=== PATIENT | female | born 1970 | race Caucasian/White ===

== ENCOUNTER → 2017-01-28 | Outpatient (CLI) | payer OTHER ==
--- NOTE | 2017-02-01 08:46 | MM ---
Reason for exam: screening (asymptomatic). Last mammogram was performed 1 year and 1 month ago. History: Family history of breast cancer in aunt at age 58. Took hormonal contraceptives for 8 years 7 months beginning at age 18. Physical Findings: A clinical breast exam by your physician is recommended on an annual basis and results should be correlated with mammographic findings. MG Screening Mammo w CAD Bilateral CC and MLO view(s) were taken. Prior study comparison: December 30, 2015, bilateral MG screening mammo w CAD. The breast tissue is extremely dense which could obscure a lesion on mammography. There is chronic nodularity in the right breast. No significant changes when compared with prior studies. ASSESSMENT: Benign, BI-RAD 2 RECOMMENDATION: Routine screening mammogram of both breasts in 1 year.
== END | disposition home or self-care (01) ==
LOC: RADMAMWWP 08:08
PROVIDERS: ATTEND Obstetrics & Gynecology
DX: Z12.31 Encounter for screening mammogram for malignant neoplasm of breast (principal)

== ENCOUNTER → 2018-04-21 | Outpatient (CLI) | payer BC ==
--- NOTE | 2018-04-22 10:40 | MM ---
Reason for exam: screening (asymptomatic). Last mammogram was performed 1 year and 3 months ago. History: Family history of breast cancer in aunt at age 58. Took hormonal contraceptives for 8 years 7 months beginning at age 18. Physical Findings: A clinical breast exam by your physician is recommended on an annual basis and results should be correlated with mammographic findings. MG Screening Mammo w CAD Bilateral CC and MLO view(s) were taken. Prior study comparison: January 28, 2017, bilateral MG screening mammo w CAD. December 30, 2015, bilateral MG screening mammo w CAD. The breast tissue is heterogeneously dense. This may lower the sensitivity of mammography. Stable benign calcifications. No significant changes when compared with prior studies. ASSESSMENT: Benign, BI-RAD 2 RECOMMENDATION: Routine screening mammogram of both breasts in 1 year.
== END | disposition home or self-care (01) ==
LOC: RADMAMWWP 08:23
PROVIDERS: ATTEND Obstetrics & Gynecology
DX: Z12.31 Encounter for screening mammogram for malignant neoplasm of breast (principal)
CPT/HCPCS: 77067

== ENCOUNTER → 2019-06-16 | Outpatient (CLI) | payer BC ==
--- NOTE | 2019-06-19 09:17 | MM ---
Reason for exam: screening (asymptomatic). Last mammogram was performed 1 year and 2 months ago. History: Family history of breast cancer in aunt at age 58. Took hormonal contraceptives for 8 years 7 months beginning at age 18. Physical Findings: A clinical breast exam by your physician is recommended on an annual basis and results should be correlated with mammographic findings. MG Screening Mammo w CAD Bilateral CC and MLO view(s) were taken. Prior study comparison: April 21, 2018, bilateral MG screening mammo w CAD. January 28, 2017, bilateral MG screening mammo w CAD. The breast tissue is extremely dense which could obscure a lesion on mammography. Finding: There are typically benign round, regional, diffuse/scattered calcifications in both breasts. There is no discrete abnormality. ASSESSMENT: Benign, BI-RAD 2 RECOMMENDATION: Routine screening mammogram of both breasts in 1 year.
== END | disposition home or self-care (01) ==
LOC: RADMAMWWP 09:22
PROVIDERS: ATTEND Obstetrics & Gynecology
DX: Z12.31 Encounter for screening mammogram for malignant neoplasm of breast (principal)
CPT/HCPCS: 77067

== ENCOUNTER → 2020-11-29 | Outpatient (CLI) | payer BC ==
--- NOTE | 2020-12-02 11:47 | MM ---
Reason for exam: screening (asymptomatic). Last mammogram was performed 1 year and 5 months ago. History: Family history of breast cancer in aunt at age 58. Took hormonal contraceptives for 8 years 7 months beginning at age 18. Physical Findings: A clinical breast exam by your physician is recommended on an annual basis and results should be correlated with mammographic findings. MG Screening Mammo w CAD Bilateral CC and MLO view(s) were taken. Prior study comparison: June 16, 2019, bilateral MG screening mammo w CAD. April 21, 2018, bilateral MG screening mammo w CAD. The breast tissue is heterogeneously dense. This may lower the sensitivity of mammography. There is chronic nodularity in the right breast centrally on the MLO view. Scattered punctate calcifications are unchanged. No significant changes when compared with prior studies. ASSESSMENT: Benign, BI-RAD 2 RECOMMENDATION: Routine screening mammogram of both breasts in 1 year.
== END | disposition home or self-care (01) ==
LOC: RADMAMWWP 11:10
PROVIDERS: ATTEND Obstetrics & Gynecology
DX: Z12.31 Encounter for screening mammogram for malignant neoplasm of breast (principal)
CPT/HCPCS: 77067

== ENCOUNTER 2021-06-12 08:18 | Day surgery (SDC) | payer BC ==
[2021-06-10 15:22] VITALS: BMI 26.3
[~2021-06-12 08:18] MED LIST: LACTATED RINGERS 1,000 ML IV SCH; LIDOCAINE 1% (10MG/ML) FOR IV START INTRADERMA PRN
[2021-06-12 08:55] VITALS: TEMP 96.4
[2021-06-12] MEDS ORDERED: PROPOFOL 10 MG/ML 20 ML VIAL IV ONE (09:44)
--- NOTE | 2021-06-12 09:52 | P.GSHP ---
History of Present Illness H&P Date: 06/12/21 Chief Complaint: Screening colonoscopy Is a 51-year-old female who presents today in colonoscopy. Past Medical History Past Medical History: Eye Disorder, Hyperlipidemia Additional Past Medical History / Comment(s): Glaucoma. History of Any Multi-Drug Resistant Organisms: None Reported Additional Past Surgical History / Comment(s): Eyes, SLT surgery. Past Anesthesia/Blood Transfusion Reactions: No Reported Reaction Additional Past Anesthesia/Blood Transfusion Reaction / Comment(s): No previous anesthesia Smoking Status: Current every day smoker - Past Family History Mother Family Medical History: No Reported History Medications and Allergies Home Medications Medication Instructions Recorded Confirmed Type Atorvastatin [Lipitor] 20 mg PO HS 06/10/21 06/12/21 History Citalopram Hydrobromide [CeleXA] 40 mg PO HS 06/10/21 06/12/21 History Ibuprofen [Advil] 200 mg PO Q8HR PRN 06/10/21 06/12/21 History Latanoprost Ophth [Xalatan 0.005%] 1 drops BOTH EYES HS 06/10/21 06/12/21 History Mv,Calcium,Min/Iron/Folic/Vitk 1 each PO DAILY 06/10/21 06/12/21 History [One-A-Day Women's Complete Tab] Omeprazole [PriLOSEC] 20 mg PO HS 06/10/21 06/12/21 History Timolol [Betimol 0.5% Ophth Soln] 1 drop BOTH EYES HS 06/10/21 06/12/21 History Allergies Allergy/AdvReac Type Severity Reaction Status Date / Time No Known Allergies Allergy Verified 06/10/21 15:01 Surgical - Exam Vital Signs Temp Pulse Resp BP Pulse Ox 96.4 F L 62 16 141/77 98 06/12/21 08:50 06/12/21 08:50 06/12/21 08:50 06/12/21 08:50 06/12/21 08:50 - General well developed, well nourished, no distress - Eyes PERRL - ENT normal pinna - Neck no masses - Respiratory normal expansion - Cardiovascular Rhythm: regular - Abdomen Abdomen: soft, non tender Assessment and Plan Assessment: We'll perform screening colonoscopy.
--- NOTE | 2021-06-12 10:02 | P.OP ---
Date of Procedure: 06/12/21 Preoperative Diagnosis: Screening colonoscopy Postoperative Diagnosis: Mild diverticulosis Procedure(s) Performed: Colonoscopy Anesthesia: MAC Surgeon: Kenrick Mensah Pathology: none sent Condition: stable Disposition: PACU Description of Procedure: The patient's placed on the endoscopy table in the lateral position. She received IV sedation. Digital rectal exam was performed which revealed no abnormalities. Flexible colonoscope was then placed patient anus and passed throughout the entire colon. The ileocecal valve was visualized. The cecum, ascending and transverse colon appeared normal. In the descending; there a few scattered diverticula. Scope summer back and rectum and this appeared normal. Scope withdrawn for patient.
[2021-06-12 10:34] VITALS: BP 113/69; PULSE 58; RESP 20
== END 2021-06-12 11:00 | disposition home or self-care (01) ==
LOC: ORWHC2ENDO 08:18
PROVIDERS: ATTEND Surgery
DX: Z12.11 Encounter for screening for malignant neoplasm of colon (principal); K57.90 Diverticulosis of intestine, part unspecified, without perforation or abscess without bleeding; E78.5 Hyperlipidemia, unspecified; H40.9 Unspecified glaucoma; Z79.899 Other long term (current) drug therapy; F17.210 Nicotine dependence, cigarettes, uncomplicated; F32.9 Major depressive disorder, single episode, unspecified; F41.9 Anxiety disorder, unspecified
CPT/HCPCS: 81025; J2704; G0121

== ENCOUNTER → 2022-02-23 | Outpatient (CLI) | payer BC ==
--- NOTE | 2022-02-25 10:39 | MM ---
Reason for Exam: Screening (asymptomatic). Last mammogram was performed 1 year(s) and 3 month(s) ago. Patient History: Menarche at age 12. First Full-Term at age 26. Postmenopausal. Hormonal Contraceptives for 8 years, 7 months, from age 18 until age 26. Maternal aunt had breast cancer, age 58. Risk Values: Lisa 5 year model risk: 1.2%. NCI Lifetime model risk: 8.5%. Film Views: Bilateral CC views were taken. Bilateral MLO views were taken. Prior Study Comparison: 04/21/2018 Bilateral Screening Mammogram, [facility]. 06/16/2019 Bilateral Screening Mammogram, [facility]. 11/29/2020 Bilateral Screening Mammogram, [facility]. Tissue Density: The breast tissue is heterogeneously dense. This may lower the sensitivity of mammography. Findings: Analyzed By CAD. Chronic nodularity in the right breast. Regional, diffuse and punctate calcifications on the right breast are unchanged. Suspect some tortuous vascularities accounting for nodularity lateral left CC view. 6 month follow up recommended. Overall Assessment: Probably benign, BI-RAD 3 Management: Diagnostic Mammogram of the left breast in 6 months.
== END | disposition home or self-care (01) ==
LOC: RADMAMWWP 10:39
PROVIDERS: ATTEND Obstetrics & Gynecology
DX: Z12.31 Encounter for screening mammogram for malignant neoplasm of breast (principal); Z78.0 Asymptomatic menopausal state; Z80.3 Family history of malignant neoplasm of breast
CPT/HCPCS: 77067

== ENCOUNTER → 2023-06-29 | Outpatient (CLI) | payer BC ==
--- NOTE | 2023-07-01 08:47 | MM ---
Reason for Exam: Screening (asymptomatic). Last mammogram was performed 1 year(s) and 4 month(s) ago. Patient History: Menarche at age 12. First Full-Term at age 26. Postmenopausal. Hormonal Contraceptives for 8 years, 7 months, from age 18 until age 26. Maternal aunt had breast cancer, age 58. Risk Values: Lisa 5 year model risk: 1.2%. NCI Lifetime model risk: 8.3%. Prior Study Comparison: 06/16/2019 Bilateral Screening Mammogram, [facility]. 11/29/2020 Bilateral Screening Mammogram, [facility]. 02/23/2022 Bilateral MG screening mammo w CAD, [facility]. Tissue Density: The breast tissue is heterogeneously dense. This may lower the sensitivity of mammography. Findings: Analyzed By CAD. There is no suspicious group of microcalcifications or new suspicious mass in either breast. Overall Assessment: Benign, BI-RAD 2 Management: Screening Mammogram of both breasts in 1 year. . Patient should continue monthly self-breast exams. A clinical breast exam by your physician is recommended on an annual basis. This exam should not preclude additional follow-up of suspicious palpable abnormalities. Note on Lisa scores and lifetime risk: 1. A Lisa score greater than 3% is considered moderate risk. If this is the case, consider specialist referral to assess eligibility for a risk reducing agent. 2. If overall lifetime risk for the development of breast cancer is 20% or higher, the patient may qualify for future screening with alternating mammogram and breast MRI. Electronically signed and approved by: Obdulio Aranda M.D. Radiologis
== END | disposition home or self-care (01) ==
LOC: RADMAMWWP 10:58
PROVIDERS: ATTEND Obstetrics & Gynecology
DX: Z12.31 Encounter for screening mammogram for malignant neoplasm of breast (principal); Z78.0 Asymptomatic menopausal state; Z80.3 Family history of malignant neoplasm of breast
CPT/HCPCS: 77063; 77067

== ENCOUNTER → 2024-08-29 | Outpatient (CLI) | payer BC ==
--- NOTE | 2024-08-30 13:09 | MM ---
Reason for Exam: Screening (asymptomatic). Last mammogram was performed 1 year(s) and 2 month(s) ago. Patient History: Menarche at age 12. First Full-Term at age 26. Postmenopausal. Patient has history of breast feeding. Hormonal Contraceptives for 8 years, 7 months, from age 18 until age 26. Maternal aunt had breast cancer, age 58. Risk Values: Lisa 5 year model risk: 1.2%. NCI Lifetime model risk: 8.1%. Prior Study Comparison: 11/29/2020 Bilateral Screening Mammogram, [facility]. 02/23/2022 Bilateral MG screening mammo w CAD, [facility]. 06/29/2023 Bilateral MG 3D screening mammo w/cad, [facility]. Tissue Density: The breasts are heterogeneously dense, which may obscure small masses. Findings: Analyzed By CAD. There is no suspicious group of microcalcifications or new suspicious mass in either breast. Overall Assessment: Benign, BI-RAD 2 Management: Screening Mammogram of both breasts in 1 year. . Patient should continue monthly self-breast exams. A clinical breast exam by your physician is recommended on an annual basis. This exam should not preclude additional follow-up of suspicious palpable abnormalities. Note on Lisa scores and lifetime risk: 1. A Lisa score greater than 3% is considered moderate risk. If this is the case, consider specialist referral to assess eligibility for a risk reducing agent. 2. If overall lifetime risk for the development of breast cancer is 20% or higher, the patient may qualify for future screening with alternating mammogram and breast MRI. [facility], , 08/30/2024 1:05 PM. Electronically signed and approved by: Obdulio Aranda M.D. Radiologis
== END | disposition home or self-care (01) ==
LOC: RADMAMWWP 10:57
PROVIDERS: ATTEND Obstetrics & Gynecology
DX: Z12.31 Encounter for screening mammogram for malignant neoplasm of breast (principal); Z78.0 Asymptomatic menopausal state; Z80.3 Family history of malignant neoplasm of breast; R92.333 Mammographic heterogeneous density, bilateral breasts
CPT/HCPCS: 77063; 77067